=== PATIENT | male | born 1970 | race Caucasian/White ===

== ENCOUNTER 2018-01-23 16:36 | Emergency (ER) | payer SELFPAY ==
[~2018-01-23] VITALS: Ht 167.6 cm; Wt 90.9 kg
[2018-01-23] MEDS ORDERED: KETOROLAC TROMETHAMINE 30 MG/ML VIAL IM ONE (19:15)
[2018-01-23] MEDS ORDERED: METHOCARBAMOL 500 MG TABLET PO ONE (19:15)
[2018-01-23] MEDS ORDERED: LIDOCAINE HCL 5% TRANSDERMAL PATCH TD ONE (19:15)
[2018-01-23 20:20] VITALS: BP 125/68
[2018-01-23] MEDS ORDERED: TraMADol HCL 50 MG TABLET PO ONE (20:30)
== END 2018-01-23 21:02 | disposition home or self-care (01) ==
LOC: EMS 16:38
DX: M54.5 Low back pain (principal); R03.0 Elevated blood-pressure reading, without diagnosis of hypertension; W01.0XXA Fall on same level from slipping, tripping and stumbling without subsequent striking against object, initial encounter; Y93.89 Activity, other specified; Y92.89 Other specified places as the place of occurrence of the external cause; Y99.8 Other external cause status
CPT/HCPCS: 72100; 96372; 99284; J1885